=== PATIENT | female | born 1940 | race Hispanic/Latino ===

== ENCOUNTER → 2018-07-13 | Outpatient (CLI) | payer OTHER | END | disposition home or self-care (01) | LOC: RAH 11:37 | PROVIDERS: ATTEND Otolaryngology Plastic Surgery within the Head & Neck | DX: R13.10 Dysphagia, unspecified (principal); J38.01 Paralysis of vocal cords and larynx, unilateral | CPT/HCPCS: 74230; 92611 ==

== ENCOUNTER → 2018-09-08 | Outpatient (CLI) | payer OTHER ==
[~2018-09-08] MED LIST: DIATR MEGLU/DIATRIZOATE SODIUM 30 ML BOTTLE ONE
== END | disposition home or self-care (01) ==
LOC: RAH 10:30
PROVIDERS: ATTEND Physician Assistant Medical
DX: M47.815 Spondylosis without myelopathy or radiculopathy, thoracolumbar region (principal); Z93.1 Gastrostomy status
CPT/HCPCS: 74018; Q9963

== ENCOUNTER → 2019-03-16 | Outpatient (CLI) | payer OTHER ==
--- NOTE | 2019-03-16 11:00 | NUR ---
MBSS COMPLETED. PENETRATION WITH NECTAR VIA CUP SIP AND MIXED TEXTURE. RECOMMEND PEG WITH PLEASURE FEEDS OF PUREED AND NECTAR-THICK LIQUIDS VIA TSP. RECOMMENDATIONS: 1. SKILLED SPEECH THERAPY 2-3XWEEK TOLERATED BY Pt. 2. STRICT COMPENSATORY STRATEGIES: *SEATED AT 88 *SMALL BITES AND SIPS *SLOW RATE *CUED RE-SWALLOW *NO MIXED TEXTURE *ORAL CARE AFTER P.O. *RE-SWALLOW AFTER P.O. (CUED BY CAREGIVER) AUTOMOTIVE [employer]S COUNTERPERSON EDUCATED Pt AND DAUGHTER IN LAW ON RESULTS AND RECOMMENDATIONS. AUTOMOTIVE PARTS COUNTERPERSON DEMONSTRATED HOW TO REACH NECTAR-THICK LIQUIDS. A SAMPLE CAN OF THICKENER WAS PROVIDED BY AUTOMOTIVE PARTS COUNTERPERSON. DAUGHTER IN LAW VERBALIZED AGREEMENT AND UNDERSTANDING WITH RECOMMENDATIONS. ALL QUESTIONS ANSWERED AT THIS TIME. AUTOMOTIVE [employer]S COUNTERPERSON PROVIDED Pt AND DAUGHTER IN LAW WITH A WRITTEN HANDOUT OF RESULTS AND RECOMMENDATIONS. Addendum: 03/16/19 at 1326 by RYANN WILLIS, [facility] Amended: Links added.
== END | disposition home or self-care (01) ==
LOC: RAH 10:28
PROVIDERS: ATTEND Internal Medicine Gastroenterology
DX: R13.12 Dysphagia, oropharyngeal phase (principal)
CPT/HCPCS: 74230; 92611